=== PATIENT | male | born 1950 | race Caucasian/White ===

== ENCOUNTER → 2016-04-16 | Outpatient (CLI) | payer OTHER | END | disposition home or self-care (01) | LOC: GMAM 10:32 | PROVIDERS: ATTEND Family Medicine | DX: I10 Essential (primary) hypertension (principal) ==

== ENCOUNTER → 2016-05-08 | Outpatient (CLI) | payer BC, OTHER | LOC: GMAM 13:04 | PROVIDERS: ATTEND Family Medicine | DX: R80.9 Proteinuria, unspecified (principal) ==

== ENCOUNTER → 2017-07-20 | Outpatient (CLI) | payer BC, MEDICARE | LOC: GMAM 17:55 | PROVIDERS: ATTEND Family Medicine | DX: G93.41 Metabolic encephalopathy (principal) ==

== ENCOUNTER → 2017-08-16 | Outpatient (CLI) | payer BC, MEDICARE | LOC: GMAM 12:04 | PROVIDERS: ATTEND Family Medicine | DX: Z12.5 Encounter for screening for malignant neoplasm of prostate (principal) ==

== ENCOUNTER → 2018-01-27 | Outpatient (CLI) | payer BC, MEDICARE ==
--- NOTE | 2018-01-28 07:23 | RAD ---
EXAM DESCRIPTION: Knee,Right Complete CLINICAL HISTORY: KNEE PAIN COMPARISON: None FINDINGS: 4 views of the right knee. No acute fracture, dislocation or aggressive bone lesion is present. Bone mineralization appears normal. No erosions are present. Mild tricompartmental marginal osteophyte formation is present. No advanced osteophytic change. Small to moderate joint effusion. IMPRESSION: Negative for acute pathology. No advanced osteoarthritis. Small to moderate joint effusion. Electronically signed by: Regulo Rolle MD 01/28/2018 7:22 AM [facility]
--- NOTE | 2018-01-28 07:24 | RAD ---
EXAM DESCRIPTION: Pelvis CLINICAL HISTORY: HIP PAIN COMPARISON: None FINDINGS: Single frontal view the pelvis. No acute fracture or dislocation or aggressive bone lesion. No advanced hip joint osteoarthritis. No aggressive lytic or blastic osseous lesions. Degenerative changes noted within the lumbar spine. Phleboliths are noted within the pelvis. Mild atherosclerotic disease is present. IMPRESSION: No acute radiographic abnormality. Degenerative spondylosis of the lumbar spine can contribute to referred/posterior hip pain. Electronically signed by: Regulo Rolle MD 01/28/2018 7:23 AM [facility]
== END ==
LOC: RAD 07:18
PROVIDERS: ATTEND Orthopaedic Surgery
DX: M25.461 Effusion, right knee (principal); M25.561 Pain in right knee; M25.551 Pain in right hip; M47.896 Other spondylosis, lumbar region

== ENCOUNTER → 2018-02-08 | Outpatient (CLI) | payer BC, MEDICARE ==
--- NOTE | 2018-02-09 08:16 | MRI ---
Study: MRI of the Right Knee. Indication: KNEE PAIN Technique: Multiplanar, multi sequence MRI of the right knee was obtained without intravenous contrast. Comparison: None. Findings: Mild mucoid degeneration ACL with mild intrasubstance and extra substance cystic change. PCL intact. Both the MCL and FCL are slightly thickened and lax with mild increased internal PD signal. In addition, there is mild thickening of the distal IT band. These findings can be seen in the setting of the osteoarthritic knee. No acute tear defect of the medial or lateral collateral structures. Irregular high-grade radial tearing posterior horn medial meniscus with near complete transection. Body extruded by 3 mm. Tiny subchondral fracture at the anteromedial margin medial femoral condyle with surrounding marrow edema. Grade 4 chondral loss of the majority of the central weightbearing portions of the medial femoral condyle with grade 3 chondral thinning medial tibial plateau. Radial free edge tearing posterior horn and body lateral meniscus. Grade 2 and 3 chondral thinning of the lateral compartment. Low-grade tendinosis quadriceps tendon insertion. Tendinosis patellar tendon origin and insertion. Trace lateral patellar tilt without subluxation. TT-TG distance measures 18 mm. Fairly extensive irregular grade 4 chondral loss throughout the lateral patellar facet and apex with cortical remodeling and patchy subchondral marrow change. Additional areas of grade 2 and 3 chondrosis throughout the patella. Large knee effusion with scattered synovitis/debris. Moderate anterior subcutaneous edema. Impression: Mucoid degeneration ACL and PCL with mild intrasubstance and extrasubstance cystic change. High-grade radial tearing posterior horn medial meniscus Radial free edge tearing body and posterior horn lateral meniscus. Tricompartmental chondrosis, most pronounced at the medial and patellofemoral compartments where there are multifocal areas of grade 4 chondral loss. Tiny subchondral fractures medial femoral condyle Large knee effusion with scattered synovitis/debris. Electronically signed by: Dipak Suero MD 02/09/2018 8:15 AM [facility]
== END ==
LOC: MRI 13:57
PROVIDERS: ATTEND Orthopaedic Surgery
DX: S83.241D Other tear of medial meniscus, current injury, right knee, subsequent encounter (principal); S83.281D Other tear of lateral meniscus, current injury, right knee, subsequent encounter; M25.462 Effusion, left knee; M94.8X6 Other specified disorders of cartilage, lower leg

== ENCOUNTER → 2018-03-28 | Outpatient (CLI) | payer BC, MEDICARE | LOC: LAB.O 10:30 | PROVIDERS: ATTEND Orthopaedic Surgery | DX: Z01.818 Encounter for other preprocedural examination (principal) ==

== ENCOUNTER → 2018-04-12 | Day surgery (SDC) | payer BC, MEDICARE ==
--- NOTE | 2018-04-08 13:13 | HP ---
CHIEF COMPLAINT: Right knee pain. HISTORY OF PRESENT ILLNESS: Maury is a 68-year-old male with a history of knee pain that has been getting progressively worse. He has had some mechanical symptoms. He has failed to gain relief from his knee pain with conservative measures. Because of his failure of relief and ongoing dysfunction, he has requested operative intervention. After discussing the risks, benefits and alternatives to that, he has given informed consent. PAST SURGICAL HISTORY: Unknown. MEDICATIONS: 1. Brio. 2. Cartia. 3. Eliquis. 4. Furosemide. 5. Levalbuterol. 6. Lisinopril. 7. Lyrica. 8. Metformin. 9. Metoprolol. 10. NovoLog. 11. Prilosec. 12. Tamsulosin. ALLERGIES: NO KNOWN DRUG ALLERGIES. FAMILY HISTORY: None pertinent to today's complaint. SOCIAL HISTORY: The patient does not drink or use any illicit drugs. He does smoke. REVIEW OF SYSTEMS: Negative except as indicated in the History of Present Illness. PHYSICAL EXAMINATION: VITAL SIGNS: Blood pressure 132/73. Pulse 87. Height 5'10". Weight 300 pounds. MENTAL STATUS: The patient is awake, alert, and is able to give a good history and participate in the physical. The patient is oriented to person, place and time. SKIN: Normal tone and turgor. MUSCULOSKELETAL: He has severe pain to palpation diffusely about the knee, but most prominent along the medial aspect. He does have crepitus with range of motion. He has some clicking with palpation in the knee. He has no varus/valgus or anterior/posterior laxity. He has no discernible effusion. IMAGING: X-rays show no acute bony abnormality. He does have evidence of arthritis. MRI was done and does show evidence of meniscal pathology as well as some cartilage defects. ASSESSMENT: 1. Meniscus tear. 2. Arthritis. 3. Knee pain. PLAN: We talked about options and at this point, he is requesting that we proceed with knee arthroscopy. We have discussed the risks, benefits, and alternatives to that and the patient has given informed consent. #[id number] [facility]
[~2018-04-12] MED LIST: BUPIVACAINE 0.25% W/EPI 50 ML VIAL INJ ONE; BUPIVACAINE 0.5% 30 ML VIAL INJ ONE; DEXAMETHASONE INJ 10 MG/ML VIAL IV ONE; HYDROcodone 5MG/APAP 325MG 1 EA TAB ONE; LACTATED RINGERS 1,000 ML ONE; LEVALBUTEROL NEBS 1.25 MG/3 ML VIAL NEB ONE; LIDOCAINE 1% 10 ML VIAL INJ ONE; METOCLOPRAMIDE HCL INJ 10 MG/2 ML VIAL IV ONE; MIDAZOLAM INJ 2 MG/2 ML VIAL ONE; PROPOFOL 200 MG/20 ML VIAL IV ONE; ROCURONIUM BROMIDE 10 MG/ML VIAL ONE; SODIUM CHL 0.9% 100ML MINI-BAG 100 ML IVPB ONE; SUGAMMADEX SODIUM 200 MG/2 ML VIAL IV ONE; ceFAZolin SODIUM 1 GM VIAL ONE; fentaNYL CITRATE INJ 50 MCG/ML AMP ONE; raNITIdine HCL INJ 25 MG/ML VIAL IV ONE
[2018-04-12] MEDS: VANCOMYCIN HCL INJ 1,000 MG VIAL IVPB ONE ×2 (10:22→10:30)
[2018-04-12] MEDS: ceFAZolin SODIUM 1 GM VIAL ONE ×2 (10:22→10:30)
[2018-04-12] MEDS: HYDROmorphone HCL INJ 2 MG/ML VIAL ONE ×2 (11:10→11:24)
[2018-04-12 13:22] VITALS: O2SAT 95
[2018-04-12 13:37] VITALS: BP 127/78; TEMP 96.8
--- NOTE | 2018-04-14 11:50 | OP ---
DATE OF PROCEDURE: 04/12/18 PREOPERATIVE DIAGNOSIS: 1. Meniscus tear. POSTOPERATIVE DIAGNOSIS: 1. Osteoarthritis. 2. Meniscus tearing. PROCEDURE: 1. Debridement. 2. Partial meniscectomy. SURGEON: Gamal Moore MD. MIXER WHIPPED TOPPING: Josias José CST, SA-C. ANESTHESIA: General anesthesia. COMPLICATIONS: None. FINDINGS: 1. Advanced arthritic changes of the medial compartment. 2. Degenerative tearing of the meniscus. 3. Normal anterior cruciate ligament, normal posterior cruciate ligament. 4. Grade 3 to 4 changes in the lateral compartment. 5. Normal lateral gutter. 6. Normal suprapatellar pouch. 7. Normal medial gutter. 8. Grade 3 to 4 changes in the patellofemoral joint. INDICATION: Mr. Del Rosario has a history of severe knee pain. He developed some mechanical symptoms. In addition to that, he had ongoing pain that has failed conservative measures. After discussing the risks, benefits and alternatives to that, the patient has given informed consent for arthroscopy. PROCEDURE: The patient was brought to the Operating Room and placed in supine position. General anesthesia was induced and the patient's leg was sterilely prepped and draped. Following prepping and draping, standard anteromedial and anterolateral portals were established. Diagnostic arthroscopy was carried out with the above findings. Attention was then focused on the medial compartment. A 3.5 mm full radius shaver was used to debride the chondral surfaces. A partial meniscectomy was performed. The knee was thoroughly irrigated to ensure complete removal of all debris. The wounds were closed with Nylon suture. Sterile dressings were placed. The patient was awoken from anesthesia and taken to Recovery. POSTOPERATIVE PLAN: The patient will be partial weightbearing until followup with us in two days. #[id number] [facility]
== END ==
LOC: AMB 05:32
PROVIDERS: ATTEND Orthopaedic Surgery
DX: S83.241A Other tear of medial meniscus, current injury, right knee, initial encounter (principal); M17.11 Unilateral primary osteoarthritis, right knee; I48.91 Unspecified atrial fibrillation; E11.9 Type 2 diabetes mellitus without complications; K21.9 Gastro-esophageal reflux disease without esophagitis; J44.9 Chronic obstructive pulmonary disease, unspecified; F17.200 Nicotine dependence, unspecified, uncomplicated; E66.01 Morbid (severe) obesity due to excess calories; Z68.42 Body mass index [BMI] 45.0-49.9, adult; Z79.82 Long term (current) use of aspirin; Z79.01 Long term (current) use of anticoagulants; Z79.84 Long term (current) use of oral hypoglycemic drugs; Z79.899 Other long term (current) drug therapy
CPT/HCPCS: 01400; 29881; 36415; 36416; 80048; 80307; 82948; 85025; 93005; J0690; J1100; J1170; J2250; J2765; J2780; J3010; J3370; J3490; J7050; J7120; J7614

== ENCOUNTER → 2018-11-22 | Outpatient (CLI) | payer BC, MEDICARE | LOC: GMAM 10:46 | PROVIDERS: ATTEND Family Medicine | DX: Z12.5 Encounter for screening for malignant neoplasm of prostate (principal); E11.40 Type 2 diabetes mellitus with diabetic neuropathy, unspecified; I10 Essential (primary) hypertension ==

== ENCOUNTER → 2020-02-07 | Outpatient (CLI) | payer BC, MEDICARE | LOC: GMAM 14:45 | PROVIDERS: ATTEND Family Medicine | DX: Z12.5 Encounter for screening for malignant neoplasm of prostate (principal); I10 Essential (primary) hypertension; E11.40 Type 2 diabetes mellitus with diabetic neuropathy, unspecified ==